=== PATIENT | male | born 1950 | race Caucasian/White ===

== ENCOUNTER 2017-04-20 17:48 | Emergency (ER) | payer BC ==
[~2017-04-20] VITALS: Ht 180.3 cm; Wt 102.0 kg
[~2017-04-20 17:48] MED LIST: ALLOPURINOL300 MG PO; ASPIRIN PO; BETA BLOCKER; CIPRO PO; COREG PO; CRESTOR PO; FIORICET 50-321 EACH PO; FLOMAX0.4 MG PO; KLONOPIN PO; KLONOPIN0.5 MG PO; LEXAPRO PO; LISINOPRIL PO; LISINOPRIL5 MG PO; LORTAB 5/500 TA1 TA1 PO; LORTAB 7.5-5001 TAB PO; LOW DOSE ASPIRI81 M2 PO; METFORMIN HCL500 M1 PO; NIASPAN PO; NIASPAN1000 MG PO; PHENERGAN PO; PLAVIX PO; PREDNISONE PO; PROTONIX PO; SKELAXIN PO; ZESTORETIC 10/11 TAB PO; ZYLOPRIM PO
[2017-04-20] MEDS ORDERED: ALLOPURINOL300 MG PO (17:57)
[2017-04-20] MEDS ORDERED: LISINOPRIL5 MG PO (17:57)
[2017-04-20] MEDS ORDERED: CLONAZEPAM0.5 MG PO (17:57)
[2017-04-20] MEDS ORDERED: PLAVIX PO (17:58)
[2017-04-20] MEDS ORDERED: NIASPAN1000 MG PO (17:58)
[2017-04-20] MEDS ORDERED: CRESTOR PO (17:58)
[2017-04-20] MEDS ORDERED: PANTOPRAZOLE SO40 MG PO (17:58)
[2017-04-20] MEDS ORDERED: LEXAPRO PO (18:00)
[2017-04-20] MEDS ORDERED: COREG PO (18:00)
[2017-04-20] MEDS ORDERED: ASPIRIN81 MG PO (18:00)
== END 2017-04-20 20:14 | disposition home or self-care (01) ==
LOC: SED 17:48
DX: L02.31 Cutaneous abscess of buttock (principal); I10 Essential (primary) hypertension; E78.5 Hyperlipidemia, unspecified; Z79.899 Other long term (current) drug therapy
CPT/HCPCS: 99282